=== PATIENT | male | born 1960 | race Caucasian/White ===

== ENCOUNTER 2017-05-10 11:24 | Emergency (ER) | payer OTHER ==
[~2017-05-10] VITALS: Ht 182.9 cm; Wt 104.3 kg
[2017-05-10] MEDS ORDERED: CENTRUM SILVER1 EAC2 PO (11:46)
[2017-05-10] MEDS ORDERED: LISINOPRIL10 MG PO (11:46)
[2017-05-10] MEDS ORDERED: TORADOL 10 MG T10 MG PO (12:48)
[2017-05-10] MEDS ORDERED: LIDOCAINE VISC100 ML PO (12:48)
[2017-05-10] MEDS ORDERED: NORCO 5-325 TA1 EACH PO (12:48)
[2017-05-10] MEDS ORDERED: VALTREX1000 MG PO (12:48)
[2017-05-10 13:01] VITALS: BP 150/99
== END 2017-05-10 13:02 | disposition home or self-care (01) ==
LOC: M.ERS 11:24
DX: B02.9 Zoster without complications (principal); I10 Essential (primary) hypertension; Z98.890 Other specified postprocedural states